=== PATIENT | female | born 1975 | race Caucasian/White ===

== ENCOUNTER 2017-05-11 21:25 | Emergency (ER) | payer OTHER ==
[~2017-05-11 21:25] MED LIST: GABAPENTIN300 MG PO; MOBIC15 M1 PO; MOTRIN 600 MG600 MG PO; PANTOPRAZOLE SO40 MG PO; RANITIDINE HCL150 MG PO; TRAMADOL50 MG PO; VENTOLIN HFA18 GM INH; VICODIN 5-3001 EACH PO; ZOFRAN 4 MG TABL4 MG PO
--- NOTE | 2017-05-11 22:25 | RADIOLOGY REPORT ---
EXAMINATION: XR HAND, LEFT CLINICAL INFORMATION: /Slammed in the gait at work. COMPARISON: None TECHNIQUE: AP, lateral, and oblique views of the left hand. FINDINGS: There is no visible acute fracture or dislocation seen. The soft tissues are normal. IMPRESSION: Unremarkable left hand exam.
--- NOTE | 2017-05-11 22:38 | ED HAND/WRIST INJURY COMPLAINT ---
History of Present Illness General Chief Complaint: Hand or Wrist Injury Stated Complaint: PT GOT HER FINGER SLAM IN THE GATE Source: patient, family, old records Exam Limitations: no limitations Vital Signs & Intake/Output Vital Signs & Intake/Output Vital Signs Date Time Temp Pulse Resp B/P B/P Pulse O2 O2 Flow FiO2 Mean Ox Delivery Rate 05/11 2249 97.8 92 23 128/72 99 Room Air 05/118 96.9 80 22 100/67 98 Allergies Coded Allergies: venom-honey bee (bee venom (honey bee)) (Intermediate, SWELLING, HIVES 03/30/16) aspirin (RASH, HIVES 03/30/16) clarithromycin (From BIAXIN) (RASH 01/23/16) Reconcile Medications Albuterol Sulfate (Ventolin Hfa) 18 GM HFA.AER.AD 2 PUF INH PRN ASTHMA ( Reported) Hydrocodone/Acetaminophen (Vicodin 5-300 MG Tablet) 1 EACH TABLET 1 TAB PO Q6H PRN PAIN Meloxicam (Mobic) 15 MG TABLET 1 TAB PO DAILY PRN PAIN/INFLAMMATION Ranitidine (Ranitidine HCl) 150 MG TABLET 1 TAB PO BID GI (Reported) Triage Note: PER PT WHILE AT WORK GOT FINGER CAUGHT IN GATE. NAIL RIPPED AND SWOLLEN, LAST TETANUS 2 YRS AGO. HX OF [facility] Triage Nurses Notes Reviewed? yes Occurred: just prior to arrival Duration: minute(s):, constant, continues in ED Timing: recent history Injury Environment: work Severity: moderate Pain/Injury Location: Left: 3rd finger. Context: crush Method of Injury: direct blow Modifying Factors: Improves With: rest. Worsens With: jarring, movement. Associated Symptoms: swelling, GCS 15 since, stiffness LMP (ages 10-50): hysterectomy : No Patient currently breastfeeds: No HPI: Prior to admission at work patient had left middle finger closed in gate door. She complains of pain swelling sustaining laceration to the tip of her finger and distal nail avulsion. She has other injury fever chills nausea vomiting diarrhea abdominal pain chest pain shortness breath headache dysuria rash. She left-hand dominant. Past History Travel History Traveled to [place] past 21 day No Medical History Any Pertinent Medical History? see below for history Neurological: NONE EENT: NONE Cardiovascular: NONE Respiratory: NONE Gastrointestinal: NONE Hepatic: NONE Renal: NONE Musculoskeletal: BENIGN SPINAL TUMOR Psychiatric: NONE Endocrine: NONE Surgical History Surgical History: non-contributory Psychosocial History Who do you live with Patient and family Services at Home None What is your primary language German Tobacco Use: Current Daily Use Daily Tobacco Use Amount/Type: => 5 Cigarettes daily Family History Hx Contributory? No Review of Systems Review of Systems Constitutional: Reports: no symptoms. EENTM: Reports: no symptoms. Respiratory: Reports: no symptoms. Cardiovascular: Reports: no symptoms. GI: Reports: no symptoms. Genitourinary: Reports: no symptoms. Musculoskeletal: Reports: see HPI, joint pain. Skin: Reports: see HPI. Neurological/Psychological: Reports: no symptoms. Hematologic/Endocrine: Reports: no symptoms. Immunologic/Allergic: Reports: no symptoms. All Other Systems: Reviewed and Negative Physical Exam Physical Exam General Appearance: well developed/nourished, alert, awake, anxious, moderate distress Head: atraumatic Eyes: Bilateral: PERRL, EOMI. Ears, Nose, Throat: normal pharynx, normal ENT inspection, hearing grossly normal Neck: normal inspection, supple Cardiovascular/Respiratory: normal breath sounds, regular rate/rhythm Back: normal inspection, normal range of motion, no vertebral tenderness Shoulder Left: normal range of motion, normal inspection Shoulder Right: normal range of motion, normal inspection Elbow Left: normal range of motion, normal inspection Elbow Right: normal range of motion, normal inspection Forearm Left: normal range of motion, normal inspection Forearm Right: normal range of motion, normal inspection Wrist Left: normal range of motion, normal inspection Wrist Right: normal range of motion, normal inspection Hand Left: normal inspection (distal phalanx laceration 2 cm), limited range of motion, nail injury, swelling, 3rd finger Hand Right: normal inspection, normal range of motion Reflexes: 2+: bicep (R), bicep (L). Neurologic/Tendon: normal sensation, normal motor functions, normal tendon functions Skin: normal color, warm/dry Lymphatic: no anterior cervical bryan Progress Differential Diagnosis: fracture Plan of Care: wound repair digital block Diagnostic Imaging: Viewed by Me: Radiology Read. Discussed w/RAD: Radiology Read. Radiology Impression: no acute abnormality, no fracture, no dislocation, no foreign body seen Departure Departure Time of Disposition: 2304 Disposition: HOME OR SELF CARE Condition: Stable Clinical Impression Primary Impression: Laceration of left middle finger w/o foreign body with damage to nail Qualifiers: Encounter type: initial encounter Qualified Code: S61.313A - Laceration without foreign body of left middle finger with damage to nail, initial encounter Referrals: MIGUELINA THOMAS MD (PCP/Family) Additional Instructions: Return for suture removal in 7-10 days Departure Forms: Customer Survey Employee Industrial Accident General Discharge Information Procedures Laceration/Wound Repair Laceration/Wound Repair: Wound Location: upper extremity (left middle finger) Wound's Depth, Shape: contused tissue, subcutaneous Wound Length (cm): 2 Wound Explored: clean, no foreign body removed, irrigated extensively Irrigated w/ Saline (ccs): 250 Betadine Prep? No Anesthesia: 0.5% bupivacaine, digit block, 1% lidocaine Volume Anesthetic (ccs): 10 Wound Repaired With: sutures Suture Size/Type: 5:0, nylon Number of Sutures: 4 Layer Closure? No Sterile Dressing Applied: Yes Splint Applied? Yes By Who? by tech Type of Splint Applied: finger Sling Applied? No Tetanus Status: up to date (2 years ago)
[2017-05-11 22:49] VITALS: BP 128/72
== END 2017-05-11 23:13 ==
LOC: ERH 21:25
DX: S61.313A Laceration without foreign body of left middle finger with damage to nail, initial encounter (principal); W23.0XXA Caught, crushed, jammed, or pinched between moving objects, initial encounter; Y92.9 Unspecified place or not applicable; Y93.9 Activity, unspecified
CPT/HCPCS: 73120-LT